=== PATIENT | female | born 2000 | race Two or more races ===

== ENCOUNTER 2020-08-30 19:35 | Emergency (ER) | payer BC ==
[2020-08-30] MEDS ORDERED: EPINEPHrine 1 MG/ML VIAL ONE (19:40)
[2020-08-30] MEDS ORDERED: EPINEPHrine 1 MG/10 ML Abboject SYRINGE ONE (19:42)
[2020-08-30] MEDS ORDERED: methylPREDNISolone Sod Succ/PF 125 MG/2 ML VIAL ONE (19:45)
== END 2020-08-30 21:36 | disposition home or self-care (01) ==
LOC: ERS 19:35
DX: T78.1XXA Other adverse food reactions, not elsewhere classified, initial encounter (principal); L50.0 Allergic urticaria; R06.2 Wheezing; R49.0 Dysphonia
CPT/HCPCS: 96372; 96374; J0171; J2930